=== PATIENT | female | born 1965 | race Asian ===

== ENCOUNTER → 2023-05-13 13:11 | Outpatient (REF) | payer OTHER, SELFPAY | LOC: WDC 13:11 | PROVIDERS: ATTENDING PHYSICIAN Physician Assistant Medical | DX: Z12.31 Encounter for screening mammogram for malignant neoplasm of breast (principal) | CPT/HCPCS: 77063; 77067 ==

== ENCOUNTER → 2023-09-16 12:37 | Outpatient (REF) | payer OTHER, SELFPAY | LOC: WDC 12:37 | PROVIDERS: ATTENDING PHYSICIAN Physician Assistant Medical | DX: R92.30 Dense breasts, unspecified (principal) | CPT/HCPCS: 76641 ==

== ENCOUNTER → 2023-10-14 06:24 | Day surgery (SDC) | payer OTHER, SELFPAY | LOC: GI 06:24 | PROVIDERS: ATTENDING PHYSICIAN Internal Medicine Gastroenterology | DX: Z12.11 Encounter for screening for malignant neoplasm of colon (principal); K64.0 First degree hemorrhoids; R10.84 Generalized abdominal pain; R12 Heartburn; R13.10 Dysphagia, unspecified; K63.5 Polyp of colon; K29.50 Unspecified chronic gastritis without bleeding | CPT/HCPCS: 45380; 43239; 88305; 88342 ==

== ENCOUNTER → 2023-11-18 09:09 | Outpatient (REF) | payer OTHER, SELFPAY | LOC: RAD 09:09 | PROVIDERS: ATTENDING PHYSICIAN Physician Assistant Medical | DX: M81.0 Age-related osteoporosis without current pathological fracture (principal) | CPT/HCPCS: 77080 ==

== ENCOUNTER → 2024-08-13 07:22 | Outpatient (REF) | payer OTHER, SELFPAY | LOC: HWWDC 07:22 | PROVIDERS: ATTENDING PHYSICIAN Physician Assistant Medical | DX: Z12.31 Encounter for screening mammogram for malignant neoplasm of breast (principal) | CPT/HCPCS: 77063; 77067 ==

== ENCOUNTER → 2024-11-18 10:21 | Outpatient (REF) | payer OTHER, SELFPAY | LOC: RAD 10:21 | PROVIDERS: ATTENDING PHYSICIAN Nurse Practitioner Adult Health | DX: M25.551 Pain in right hip (principal) | CPT/HCPCS: 73502 ==